=== PATIENT | female | born 1995 | race Two or more races ===

== ENCOUNTER 2016-04-13 07:23 | Inpatient (IN) | payer MEDICAID ==
[2016-04-13 08:04] VITALS: BMI 38.6
--- NOTE | 2016-04-13 08:49 | HISTPHYS ---
- HISTORY OF PRESENT ILLNESS Age: 20 Estimated Due Date: 04/15/16 Gestational Age: 39 : 2 Para: 1 Patient Presents to:: Labor & Delivery Presents for:: Labor Current : Diabetes, GBS - - REVIEW OF SYSTEMS Reports/Denies: Reports: Contractions Pain: Reports: Abdominal - ALLERGIES Allergies Allergy/AdvReac Type Severity Reaction Status Date / Time No Known Allergies Allergy Verified 04/13/16 07:56 - CURRENT MEDICATIONS Home Medication List Glyburide 2.5 mg PO 04/13/16 [History] - PAST MEDICAL HISTORY Reports: Diabetes - PAST SURGICAL HISTORY Reports: None - FAMILY HISTORY Family History: Noncontributory - SOCIAL HISTORY Smoking Status: Never smoker Social History: Denies: Amphetamine Use, Alcohol Use, Barbiturate Use, Benzodiazipine Use, Cocaine Use, Heroin Use, Marijuana Use, Methadone Use, MDMA (Ecstasy) Use, Substance Use Disorder - GENITOURINARY HISTORY HX : 2 Para: 1 Live Deliveries (# of pregnancies resulting in a live ): 1 1 Sex: Female Weight: 6 10 Weeks Gestation: 39 - PHYSICAL EXAM Vital Signs:: Temperature: 98.3 F (04/13/16 07:59) HR: 88 (04/13/16 07:59) RR: 18 (04/13/16 07:59) BP: 125/67 (04/13/16 07:59) Pulse Ox: () GENERAL: Alert, Oriented, No Acute Distress, Anxious HEENT: Normal CARDOVASCULAR/CHEST: Normal ABDOMEN: Gravid Fundal Height (cm): 40 GENITOURINARY: Normal. negative: Lesions MUSCULOSKELETAL: Normal EXTERMITIES: Moves All Extremeties. negative: Edema Dilation (cm): 6 Effacement (%): 90 Station: -2 Heart Rate: 135 Reactive Contractions: Regular Membranes: AROM Amniotic Fluid: Clear - ASSESSMENT (ACTIVE PROBLEMS) (1) Term Acute Z34.80 - ENCOUNTER FOR SUPRVSN OF NORMAL , UNSP TRIMESTER (2) Gestational diabetes Acute O24.419 - GESTATIONAL DIABETES MELLITUS IN , UNSP CONTROL (3) Active labor at term Acute [id number] - - PLAN Admit Other Plan: 20 yo at term presents in active labor. care complicated by gestational diabetes, controlled well with oral meds. Neg gbbs screening, admit , expect vaginal delivery. EFW 7-12.
[2016-04-13] MEDS ORDERED: LR 500 ML IV PRN (08:59)
[2016-04-13] MEDS ORDERED: BUTORPHANOL 1 MG/ML VIAL IV PRN (08:59)
[2016-04-13] MEDS ORDERED: Vaccine Screening Complete SCH ×2 (09:00→12:00)
[2016-04-13] MEDS ORDERED: LR 1,000 ML IV SCH ×2 (09:00→18:04)
[2016-04-13 09:07] LABS: AUTOMATED BASOPHIL 0.3 % (0-2); AUTOMATED EOSINOPHIL 1.6 % (0-5); AUTOMATED LYMPH 21.6 % (17-44); AUTOMATED MONOCYTE 6.7 % (3-10); AUTOMATED NEUTROPHIL 69.8 % (45-76); MPV 8.3 fL (7.4-10.4)
[2016-04-13] MEDS ORDERED: OXYTOCIN 1,000 ML IV ONE ×2 (09:32→11:05)
[2016-04-13] MEDS ORDERED: LANOLIN OINTMENT 0.25 OZ TUBE TOP PRN (11:05)
[2016-04-13] MEDS ORDERED: SODIUM CHLORIDE 0.9% 3 ML FLUSH FLUSH PRN (11:05)
[2016-04-13] MEDS ORDERED: DIBUCAINE OINTMENT 1 OZ TUBE TOP PRN (11:05)
[2016-04-13] MEDS ORDERED: OXYCODONE HCL 5 MG TABLET PO PRN ×2 (11:05)
[2016-04-13] MEDS ORDERED: ZOLPIDEM TARTRATE 5 MG TAB PO PRN (11:05)
--- NOTE | 2016-04-13 11:07 | OBDELNOTE ---
Delivery Note - Problem/Diagnosis (1) Term Status: Acute (2) Gestational diabetes Status: Acute (3) Active labor at term Status: Acute (4) Vaginal delivery Status: Acute (5) Single live Status: Acute - Admitting Diagnosis Reason for Visit: Contractions Admission Date: 04/13/16 Admission time: 07:45 Gestational Age: 39 - Procedures Procedure(s): Non-Stress Test Labor Anesthesia/Analgesia: None Date: 04/13/16 Spontaneous Vaginal Delivery Presentation: Vertex Episiotomy: None Laceration: None EBL: 150 Fluid: Clear Placenta: Spontaneous Description: Normal Cord: 3 Vessels - Procedures Procedures: None - Infant Data Sex: Female Weight: 3.317 kg (1min): 9 (5min): 9 Feeding Plans for Infant: Bottle Complications: No Complications to:: LDRP/Mother's Room - /Operative Complications /Op Complications: None Discharge Planning - REASON FOR ADMISSION Patient Presents to:: Labor & Delivery Reason for Visit: Labor - DISCHARGE INSTRUCTIONS
--- NOTE | 2016-04-13 11:08 | PCM.DCS92 ---
<Charis Tesfaye - Last Filed: 04/13/16 11:07> - Primary/Secondary Discharge Diagnoses (1) Term Acute Z34.80 - ENCOUNTER FOR SUPRVSN OF NORMAL , UNSP TRIMESTER (2) Gestational diabetes Acute O24.419 - GESTATIONAL DIABETES MELLITUS IN , UNSP CONTROL oral hypoglycemic-controlled third trimester O24.415 - Gestational diabetes mellitus in , controlled by oral hypoglycemic drugs (3) Active labor at term Acute [id number] - (4) Vaginal delivery Acute O80 - ENCOUNTER FOR FULL-TERM UNCOMPLICATED DELIVERY (5) Single live Acute Z37.0 - SINGLE LIVE - HOSPITAL COURSE /Op Complications: None - DISCHARGE INSTRUCTIONS Discharge Disposition: Home Discharge Condition: Good Cognitive Discharge Status: Unimpaired Fuctional Discharge Status: Independent Patient Leaving with Prescriptions?: Yes Home Medications/ New Prescriptions: New Hydrocodone Bit/Acetaminophen [Hydrocodon-Acetaminophen 5-325] 1 - 2 tab PO Q4H PRN #30 tab PRN Reason: Pain Ibuprofen Tablet [Motrin] 800 mg PO TID #30 tab No Action Vits W-Ca,Fe,FA(<1Mg) [] 1 tab PO DAILY Glyburide 2.5 mg PO DAILY Referrals: Charis Tesfaye MD [Staff Physician] - 05/26/16 8:30 am - Diet Diet at Discharge: Regular - Activity Activity: Pelvic Rest No Driving for: 2 weeks - Instructions Call Physician for: Sudden/Sever Chest Pain, Foul Smelling Discharge, Pain/ Redness in Calf/Leg, Temperature Above 100.4 Additional Instructions: NOTHING TO EAT OR DRINK AFTER MIDNIGHT BEFORE APPOINTMENT - DC Summary Notes Discharge Medications: *See "Discharge Medication List" for a complete list of Home Medications and Discharge Medications.* Obstetric Hospital Course - Admitting Diagnosis Reason for Visit: Contractions Admission Date: 04/13/16 Admission time: 07:45 Gestational Age: 39 - Procedures Procedure(s): Non-Stress Test Labor Anesthesia/Analgesia: None Date: 04/13/16 Spontaneous Vaginal Delivery Presentation: Vertex Episiotomy: None Laceration: None EBL: 150 Fluid: Clear Placenta: Spontaneous Description: Normal Cord: 3 Vessels - Procedures Procedures: None - Data Infant Sex: Female Weight: 3.317 kg (1min): 9 (5min): 9 Feeding Plans for : Bottle Complications: No Complications to:: LDRP/Mother's Room - /Operative Complications /Op Complications: None <Bola Mccarty - Last Filed: 04/14/16 08:20> - DC Summary Notes Discharge Medications: *See "Discharge Medication List" for a complete list of Home Medications and Discharge Medications.*
[2016-04-13] MEDS: IBUPROFEN 800 MG TAB PO SCH ×2 (11:37→18:13)
[2016-04-13] MEDS ORDERED: Pharmacy Order Set Alert SCH (12:00)
[2016-04-13] MEDS ORDERED: SODIUM CHLORIDE 0.9% 3 ML FLUSH FLUSH SCH (18:00)
[2016-04-13] MEDS ORDERED: Docusate Sodium 100 MG CAP PO SCH (21:00)
[2016-04-14] MEDS: IBUPROFEN 800 MG TAB PO SCH ×3 (00:01→12:01)
[2016-04-14 06:04] VITALS: BP 122/72; PULSE 83; TEMP 97.9
--- NOTE | 2016-04-14 08:22 | OBGYNPROG ---
- Subjective Post Day: 1 Reports: Ambulating, Tolerating Regular Diet, Voiding Freely, Light Bleeding. Denies: Complaints Pain: Reports: Well Managed - Objective Vital Signs: Temperature: 97.9 F (04/14/16 06:03) HR: 83 (04/14/16 06:03) RR: 18 (04/14/16 06:03) BP: 122/72 (04/14/16 06:03) Pulse Ox: () General: Alert, Oriented, No Acute Distress ABDOMEN: Non-Distended, Non-Tender, Soft Fundus: At Umbilicus, Firm. Denies: Tender Lochia: Moderate Bladder: Voiding & Emptying EXTERMITIES: Moves All Extremeties. Denies: Pain/Tenderness OBGYN Progress Note - ASSESSMENT (1) Vaginal delivery Status: Acute Code(s): O80 - ENCOUNTER FOR FULL-TERM UNCOMPLICATED DELIVERY - PLAN Discharge (Per pt request. Precautions and restrictions discussed.)
== END 2016-04-14 14:00 | disposition home or self-care (01) | DRG 775 ==
LOC: LD 07:23 → MASU 08:13
PROVIDERS: ADMIT Obstetrics & Gynecology; ATTEND Obstetrics & Gynecology
PROC: 10E0XZZ Delivery of Products of Conception, External Approach (ICD-10-PCS; principal; 2016-04-13)
PROC: 10907ZC Drainage of Amniotic Fluid, Therapeutic from Products of Conception, Via Natural or Artificial Opening (ICD-10-PCS; 2016-04-13)
DX: O24.429 Gestational diabetes mellitus in childbirth, unspecified control (principal); Z37.0 Single live birth; Z3A.39 39 weeks gestation of pregnancy; Z79.84 Long term (current) use of oral hypoglycemic drugs
CPT/HCPCS: 59400; 81002; 85014; 85018; 85025; 86592; 86900; 86901; 96361; 96365; J2590; J3490